=== PATIENT | male | born 2000 | race Native Hawaiian/Other Pacific Islander ===

== ENCOUNTER 2023-03-11 16:18 | Emergency (ER) | payer OTHER ==
[~2023-03-11] VITALS: Ht 182.9 cm; Wt 90.7 kg
[2023-03-11 16:18] VITALS: TEMP 99
[2023-03-11 16:52] LABS: PLATELET COUNT 344 K/uL (142-355)
[2023-03-11 17:04] LABS: POTASSIUM 3.6 mmol/L (3.6-5.2)
[2023-03-11 17:56] VITALS: BP 127/79
== END 2023-03-11 17:56 ==
LOC: ED 16:18
PROVIDERS: Family Medicine
DX: S20.20XA Contusion of thorax, unspecified, initial encounter (principal); S09.90XA Unspecified injury of head, initial encounter; X58.XXXA Exposure to other specified factors, initial encounter
CPT/HCPCS: 80053; 85027; 99283